=== PATIENT | male | born 1985 | race African-American/Black ===

== ENCOUNTER 2018-02-09 09:04 | Emergency (ER) | payer SELFPAY ==
[~2018-02-09] VITALS: Ht 170.2 cm; Wt 78.0 kg
[2018-02-09 09:51] LABS: BASOPHILS % 0.8 % (0.0-2.0); EOSINOPHILS % 6.3 % (0.0-5.0); HEMATOCRIT. 39.3 % (42.0-52.0); LYMPHOCYTES % 21.9 % (20.0-50.0); MEAN CORPUSCULAR HEMOGLOBIN 24.6 pg (28.0-32.0); MEAN CORPUSCULAR VOLUME 74.7 fL (80.0-94.0); MEAN PLATELET VOLUME 7.9 fl (7.4-10.4); MONOCYTES % 7.7 % (2.0-8.0); NEUTROPHILS % 63.3 % (40.0-76.0); PLATELET 403 x1000/uL (130-400); RED BLOOD CELL COUNT 5.26 mill/uL (4.7-6.1); RED CELL DISTRIBUTION WIDTH 15.4 % (11.6-14.6)
[2018-02-09 09:54] LABS: CHLORIDE 105 mEq/L (98-107)
[2018-02-09 09:58] LABS: ETHANOL BLOOD < 10 mg/dL
[2018-02-09 15:18] VITALS: BP 134/71
== END 2018-02-09 16:02 | disposition home or self-care (01) ==
LOC: ER 09:24
DX: R40.4 Transient alteration of awareness (principal); D64.9 Anemia, unspecified; F19.10 Other psychoactive substance abuse, uncomplicated; F10.20 Alcohol dependence, uncomplicated; D47.3 Essential (hemorrhagic) thrombocythemia; Y90.0 Blood alcohol level of less than 20 mg/100 ml
CPT/HCPCS: 36415; 70450; 80053; 82962; 85025; 99284; G0482